=== PATIENT | female | born 1960 | race Caucasian/White ===

== ENCOUNTER 2016-12-31 18:44 | Emergency (ER) | payer OTHER ==
--- NOTE | 2016-12-31 18:56 | UCPHY ---
H & P Patient Type: New HPI/ROS: HPI CHIEF COMPLAINT: hematuria, urinary frequency HISTORY OF PRESENT ILLNESS: The patient very pleasant 56-year-old female, denies any significant medical history takes vitamins, no recent surgical history, presents to the urgent care with painless hematuria. Patient states that she has been drinking lot of fluids today, she was doing yd work, she noticed that she had urgency to go and is been going frequently. She denies blood in her urine when she urinated earlier today. She denies flank pain, abdominal pain, fever, nausea, vomiting. Denies chest pain or shortness of breath. Upon arrival to the urgent care she did produce very dark urine. Dark brown bloody. No pain. Past Medical History: estrogen patch, thyroid disease Past Surgical History: Breast implants, and then removal. D&C Social History: denies daily use of drugs, tobacco, endorses alcohol Family History: Noncontributory ROS REVIEW OF SYSTEMS: A comprehensive 10 point review of systems is otherwise negative aside from elements mentioned in the history of present illness. Exam Constitutional appears well nontoxic, triage nursing summary reviewed, vital signs reviewed, awake/alert. Eyes normal conjunctivae and sclera, EOMI, PERRLA. HENT normal inspection, atraumatic, moist mucus membranes, no epistaxis, neck supple/ no meningismus, no raccoon eyes. Respiratory clear to auscultation bilaterally, normal breath sounds, no respiratory distress, no wheezing. Cardiovascular rate normal, regular rhythm, no murmur, no edema, distal pulses normal. Gastrointestinal soft, non-tender, no rebound, no guarding, normal bowel sounds, no distension, no pulsatile mass. Genitourinary no CVA tenderness. Musculoskeletal no midline vertebral tenderness, full range of motion, no calf swelling, no tenderness of extremities, no meningismus, good pulses, neurovascularly intact. Skin pink, warm, & dry, no rash, skin atraumatic. Neurologic awake, alert and oriented x 3, AAOx3, moves all 4 extremities equally, motor intact, sensory intact, CN II-XII intact, normal cerebellar, normal vision, normal speech. Psychiatric normal mood/affect. Heme/Lymph/Immune no lymphadenopathy. Differential Diagnosis: Includes but is not limited to in a particular order urinary tract infection, cystitis, renal tumor, bladder mass, kidney stone. Medical Decision Making: Plan for this patient check urinalysis. If urinalysis does not indicate urinary tract infection I would recommend blood work and ultrasound of her kidneys and bladder to see why she has gross hematuria. Re-evaluation: Urinalysis reviewed nitrite positive leukocyte esterase positive whites and reds indicating urinary tract infection. 1st dose of Keflex here given in the urgent care. Take home pack of Keflex, prescription for Keflex and Pyridium. She understands return to the urgent care or emergency room if she has worsening symptoms questions concerns. Drink lots of fluids. If she develops back pain, fever, vomiting or cannot urinate return to the emergency room. Follow-up primary care 48 hours. Source: Patient - Family History Significant Family History: No pertinent family hx Constitutional: Initial Vital Signs Temperature (C) 36.6 C 12/31/16 19:03 Heart Rate 93 12/31/16 19:03 Respiratory Rate 18 12/31/16 19:03 Blood Pressure 135/92 H 12/31/16 19:03 O2 Sat (%) 96 12/31/16 19:03 O2 Delivery Mode Room Air Allergies/Adverse Reactions: Penicillins Allergy (Verified 12/31/16 19:03) Home Medications: Medication Instructions Recorded Estrogen Patch 05/12/11 Flonase 05/12/11 Synthroid 05/12/11 Vivadel 05/12/11 Medical Decision Making - Data Points Laboratory Results: 12/31/16 18:50 Urine Color BROWN Urine Appearance CLOUDY Urine pH 5.5 (5.0-7.5) Ur Specific [place] >= 1.030 (1.002-1.030) Urine Protein TNP Urine Ketones TNP Urine Blood 3+ H (NEGATIVE) Urine Nitrate POSITIVE H (NEGATIVE) Urine Bilirubin NEGATIVE (NEGATIVE) Urine Urobilinogen 1.0 EU EU (0.2-1.0) Ur Leukocyte Esterase 1+ H (NEGATIVE) Urine RBC Pending Urine WBC Pending Ur Epithelial Cells Pending Ur Culture Indicated? INDICATED H (NI) Urine Glucose NEGATIVE (NEGATIVE) Departure - Departure Disposition: Home, Routine, Self-Care Clinical Impression: UTI (urinary tract infection) Qualifiers: Urinary tract infection type: acute cystitis Hematuria presence: with hematuria Qualified Code(s): N30.01 - Acute cystitis with hematuria Condition: Good Instructions: Urinary Tract Infection in Women (ED) Additional Instructions: 1. Drink lots of fluids increase her water intake. 2.Take Keflex as prescribed. 3. take peridium this will help with burning and discomfort of urine. It may turn orange. 4. please follow up with your primary care doctor next 48-72 hours. Return to the urgent care or emergency room if there is any worsening symptoms questions or concerns. Referrals: Ruba Delcid MD [Primary Care Provider] - As per Instructions - PQRS PQRS Measurement: n/a
[2016-12-31 19:03] LABS: COLOR BROWN; LEUKOCYTE ESTERASE,URINE 1+ (NEGATIVE); NITRITE,URINE POSITIVE (NEGATIVE); PH,URINE 5.5 (5.0-7.5)
[2016-12-31 19:06] VITALS: TEMP 97.9
[2016-12-31] MEDS ORDERED: CEPHALEXIN 500MG PREPACK#4 BTL TAKEHOME ONE (19:14)
[2016-12-31] MEDS ORDERED: CEPHALEXIN 500 MG CAP PO ONE (19:14)
[2016-12-31 19:16] LABS: BACTERIA 3+ /hpf (NONE SEEN); RBC,URINE >182 /hpf (0-3); WBC,URINE 15-25 /hpf (0-3)
[2016-12-31 19:47] VITALS: BP 142/96; PULSE 88; RESP 16; O2SAT 97
== END 2016-12-31 19:46 | disposition home or self-care (01) ==
LOC: CED 18:44
DX: N30.01 Acute cystitis with hematuria (principal)
CPT/HCPCS: 81003-PO; 81015-PO; 99204-PO; G0463-PO

== ENCOUNTER → 2017-07-24 | Outpatient (CLI) | payer OTHER | LOC: FIMAGING 15:34 | PROVIDERS: ATTEND Family Medicine | DX: Z12.31 Encounter for screening mammogram for malignant neoplasm of breast (principal) | CPT/HCPCS: G0202 ==

== ENCOUNTER → 2018-07-26 | Outpatient (CLI) | payer OTHER | LOC: FIMAGING 12:48 | PROVIDERS: ATTEND Family Medicine | DX: Z12.31 Encounter for screening mammogram for malignant neoplasm of breast (principal) ==